=== PATIENT | female | born 1970 | race Caucasian/White ===

== ENCOUNTER 2019-01-20 17:03 | Emergency (ER) | payer MEDICARE, MEDICAID, SELFPAY ==
[2018-10-13 12:03] VITALS: BMI 24.4
[2019-01-20 17:03] VITALS: BP 108/82; PULSE 88; RESP 16; TEMP 36.6; O2SAT 100; BMI 24.8
--- NOTE | 2019-01-20 17:49 | ED.VISSUMM ---
- ER Visit Summary Date of Service: 01/20/19 Chief Complaint: Neck pain, back pain and buttock pain status post fall History of Present Illness: The patient is a 48 F who presents status post fall. She was at a drinking establishment this past Saturday. She walked outside to smoke. She fell. She landed on her buttocks. She localizes pain to the right buttocks area, left mid back and right side of the neck posteriorly. She denied head trauma. Denies loss conscious. She denies paresthesia, anesthesia motors. She denies shortness of breath or difficulty breathing. She denies nausea, vomiting diarrhea. No change in color urine. She is on no anticoagulant. Physical Examination: Vital signs noted. She appears uncomfortable. Head is atraumatic normocephalic. Pupils are equal round reactive. Extraocular muscles are intact. TMs are pearly white with landmarks noted. Nares patent with no drainage. Posterior pharynx without erythema or exudate. Uvula is midline. There is no dysphonia or dysphasia. Trachea is midline. There is no stridor with auscultation of the neck. There is pain to palpation right paracervical region. There is no midline tenderness. She has full active range of motion. She complains her neck is stiff. Trach is midline. Heart is regular without murmur, gallop or rub. There is a bruise left mid back. There is no crepitus obtains air. Breath sounds were noted bilaterally with no hyperresonance. Abdomen is soft nontender with no hepatosplenomegaly. There is no pain palpation left or right upper quadrant. There is pain abrasion over the right issue tuberosity. Gait was observed normal. She is alert oriented x3. Moves all extremities. Test Results: None were obtained Emergency Department Course and Treatment: Patient was offered pain medicine which she declined. She was informed based on history and physical imaging is not warranted. She questioned me 5 times regarding x-ray. When an x-ray of the chest was offered she declined. Treatment Plan: Rest, ice and anti-inflammatory Disposition: Discharge to home Impression: 1. Paracervical strain secondary to fall initial counter 2. Left mid back contusion secondary to fall initial encounter 3. Right buttocks contusion secondary to fall initial encounter This note was generated with moneymeetsation software. It may contain incorrect words, spelling, and punctuation that were not noted in review of the chart prior to signing ED Disposition - Plan for ED Patient: Disposition: Home or Assisted Living Instructions: ED Contusion Back, ED Sprain Strain Neck Referrals: Jose Guadalupe Liz MD [Primary Care Provider] - 10-14 Days if not better
== END 2019-01-20 18:00 | disposition home or self-care (01) ==
PROVIDERS: Emergency Provider Emergency Medicine; Family Provider Family Medicine; PCP Family Medicine
DX: S30.0XXA Contusion of lower back and pelvis, initial encounter (principal); S20.222A Contusion of left back wall of thorax, initial encounter; W01.0XXA Fall on same level from slipping, tripping and stumbling without subsequent striking against object, initial encounter; Y93.9 Activity, unspecified; Y92.838 Other recreation area as the place of occurrence of the external cause; Y99.9 Unspecified external cause status; Z72.0 Tobacco use
CPT/HCPCS: 99282

== ENCOUNTER → 2019-09-21 11:56 | Outpatient (CLI) | payer MEDICARE, MEDICAID, SELFPAY ==
[2019-08-28 14:41] VITALS: BMI 24.8
[2019-09-21 13:11] LABS: ALB/GLOB Ratio 1.1 RATIO (0.9-2.4); AST(SGOT) 17 U/L (15-37); Alanine Aminotransfer ALT/SGPT 20 U/L (13-56); Albumin, Serum 3.8 g/dL (3.2-5.0); Alkaline Phosphatase 59 U/L (45-117); Anion Gap 4 (5-15); BUN 13 mg/dL (7-18); BUN/Creat Ratio 14.8 RATIO (10-20); Calcium,Total 8.7 mg/dL (8.5-10.1); Chloride 108 mmol/L (98-107); Cholesterol 238 mg/dL (200); Creatinine, Serum 0.88 mg/dL (0.55-1.02); EST Glomerular Filtration Rate 73 mL/min (>60); Est Glom Filt Rate - Afr Amer 88 mL/min (>60); Globulin 3.6 g/dL (2.2-4.2); Glucose 85 mg/dL (74-106); High Density Lipoprotein 44 mg/dL; Potassium 4.4 mmol/L (3.5-5.1); Protein, Total 7.4 g/dL (6.4-8.2); Sodium Level 140 mmol/L (136-145); Triglycerides 116 mg/dL; Very Low Density Lipoprotein 23 mg/dL (5-40)
== END ==
PROVIDERS: Family Provider Family Medicine; PCP Family Medicine; Referring Provider Family Medicine; Visit Provider Family Medicine
DX: Z13.6 Encounter for screening for cardiovascular disorders (principal); Z13.1 Encounter for screening for diabetes mellitus
CPT/HCPCS: 36415; 80053; 80061

== ENCOUNTER → 2019-09-29 11:46 | Outpatient (CLI) | payer MEDICARE, MEDICAID, SELFPAY ==
[2019-08-28 14:41] VITALS: BMI 24.8
--- NOTE | 2019-09-29 11:51 | BI_ITS ---
MAMMOGRAPHY - BILATERAL SCREENING REASON FOR EXAM: Female, 49 years old. Routine annual screening examination. PERTINENT HISTORY: Non-contributory. TECHNIQUE: Digital bilateral breast tushar (3D mammographic acquisition) in the CC and MLO projections. 2-D mediolateral oblique (MLO) and craniocaudad (CC) views of both breasts were obtained. CAD: Full Field Digital Mammography with Computer Added Detection was performed. COMPARISON: Comparison is made with prior outside examination dated February 16, 2013. FINDINGS: Breast Composition: The breasts are heterogeneously dense, which may obscure small masses. There are no dominant masses or suspicious calcifications. Stable small left axillary lymph node. No other significant abnormalities are identified. There has been no significant change since the prior study. BI/SCREEN MAMM (CAD) W/TUSHAR BILAT IMPRESSION: Stable bilateral screening mammogram. Yearly follow-up mammogram recommended. (A) ASSESSMENT CATEGORY: BIRADS Category 2: Benign. A letter regarding these results will be sent to the patient by the facility within 30 days. Approximately 10% of breast cancers are not detected by mammography. A normal mammogram should not delay biopsy of a clinically suspicious abnormality. [id number] Electronically Signed: Tomas Pitts, at 14:20 EST , Service support ,
== END ==
PROVIDERS: Family Provider Family Medicine; PCP Family Medicine; Referring Provider Family Medicine; Visit Provider Family Medicine
DX: Z12.31 Encounter for screening mammogram for malignant neoplasm of breast (principal)
CPT/HCPCS: 77063; 77067

== ENCOUNTER 2020-06-22 17:14 | Emergency (ER) | payer MEDICARE, MEDICAID, SELFPAY ==
[2019-12-30 16:11] VITALS: BMI 24.8
[2020-06-22 17:16] VITALS: BP 136/79; PULSE 100; RESP 18; TEMP 36.4; O2SAT 96; BMI 23.3
--- NOTE | 2020-06-22 17:20 | ED.RN ---
PT VERY ANXIOUS DURING TRIAGE, ASKING QUESTIONS ABOUT COVID. REASSURED PT THAT ALL PRECAUTIONS ARE BEING TAKEN TO PREVENT SPREAD OF COVID. PT STATES SHE DOES NOT WANT TO BE SEEN.
--- NOTE | 2020-06-22 17:20 | ED.RN ---
PT LEFT WITHOUT BEING SEEN.
== END 2020-06-22 17:20 ==
LOC: ED 17:44
PROVIDERS: Emergency Provider Emergency Medicine; PCP Family Medicine
DX: J02.9 Acute pharyngitis, unspecified (principal)

== ENCOUNTER → 2023-05-09 | Outpatient (CLI) | payer MEDICARE, MEDICAID, SELFPAY ==
--- NOTE | 2023-05-09 08:43 | BI_ITS ---
MAMMOGRAPHY - BILATERAL SCREENING REASON FOR EXAM: Female, 53 years old. Routine annual screening examination. PERTINENT HISTORY: Non-contributory. TECHNIQUE: Digital bilateral breast tushar (3D mammographic acquisition) in the CC and MLO projections. 2-D mediolateral oblique (MLO) and craniocaudad (CC) views of both breasts were obtained. CAD: Full Field Digital Mammography with Computer Added Detection was performed. COMPARISON: Comparison is made with prior study dated September 29, 2019. FINDINGS: Breast Composition: The breasts are heterogeneously dense, which may obscure small masses. There are no dominant masses or suspicious calcifications. Stable small benign-appearing left axillary lymph node. No other significant abnormalities are identified. There has been no significant change since the prior study. BI/SCRN MAMM (CAD)W/TUSHAR BILAT IMPRESSION: Stable bilateral screening mammogram. Yearly follow-up mammogram recommended. (A) ASSESSMENT CATEGORY: BIRADS Category 2: Benign. A letter regarding these results will be sent to the patient by the facility within 30 days. Approximately 10% of breast cancers are not detected by mammography. A normal mammogram should not delay biopsy of a clinically suspicious abnormality. [id number] Electronically Signed: Tomas Pitts MD at 9:40 EDT ,
== END | disposition home or self-care (01) ==
LOC: OPBI 08:39
PROVIDERS: PCP Family Medicine; Referring Provider Family Medicine; Visit Provider Family Medicine
DX: Z12.31 Encounter for screening mammogram for malignant neoplasm of breast (principal)
CPT/HCPCS: 77063; 77067

== ENCOUNTER 2023-10-07 23:25 | Emergency (ER) | payer MEDICARE, MEDICAID, SELFPAY ==
[2023-10-07 23:26] VITALS: BP 131/83; PULSE 111; RESP 16; TEMP 36.1; O2SAT 100; BMI 24.5
--- NOTE | 2023-10-08 00:42 | EDS_ITS ---
HPI History of Present Illness Chief Complaint: Other, Pain/Inj Informant: patient Narrative Narrative: 53-year-old female presenting to the emergency room with acute rectal pain. Patient states that she was sitting at her friend's house several hours before arrival when she got an acute sharp pain in the rectal region. States she has had something like this before and she tried many different creams and eventually went away. She denies any blood in the stool. She had a normal bowel movement earlier in the day. [facility] Medical History Arthritis Asthma Chest pain Hay fever Hemorrhoids Neck pain Shoulder pain SOB (shortness of breath) Home Medications albuterol sulfate 90 mcg/actuation aerosol inhaler 8.5 unit inhalation PRN PRN Shortness Of Breath 07/05/14 [History Last Taken Unknown] budesonide-formoterol HFA 160 mcg-4.5 mcg/actuation aerosol inhaler 1 unit inha lation PRN PRN Shortness Of Breath 07/05/14 [History Last Taken Unknown] lorazepam 0.5 mg tablet 0.5 mg PO DAILY 07/05/14 [History Last Taken Unknown] omeprazole 20 mg capsule,delayed release 20 mg PO DAILY 07/05/14 [History Last Taken Unknown] benzonatate 100 mg capsule 200 mg (2 x 100 mg) PO TID PRN cough #30 caps 08/28/19 [Rx Last Taken Unknown] azithromycin 250 mg tablet See Rx Instructions PO .COMPLEX #6 tabs 10/17/21 [Rx Last Taken Unknown] hydrocortisone 2.5 % topical cream with perineal applicator (Anusol-HC) 1 applic MS TID PRN PRN pa #30 grams 10/08/23 [Rx Last Taken Unknown] Allergy/AdvReac Type Severity Reaction Status Date / Time latex Allergy Unknown Verified 10/07/23 23:26 sulfamethoxazole Allergy Angioedema Verified 10/07/23 23:26 [From Bactrim] trimethoprim [From Bactrim] Allergy Angioedema Verified 10/07/23 23:26 Surgical History Hernia History of removal of skin mole History of tonsillectomy Social History Smoking Status: Unknown if ever smoked alcohol intake: never ROS ROS ED Constitutional Constitutional ED: Denies chills or weight loss Eyes Eyes: Denies change in vision or diplopia ENT ENT ED: Denies ear pain, rhinorrhea or sore throat Cardiovascular Cardiovascular: Denies chest pain, orthopnea, palpitations or racing heartbeat Respiratory/Chest Respiratory/Chest: Denies cough, dyspnea or orthopnea Gastrointestinal Gastrointestinal: Reports other Details: Acute rectal pain ; Denies abdominal pain, constipation, diarrhea, melena, nausea or vomiting Genitourinary Genitourinary ED: Denies dysuria, hematuria or urinary frequency Musculoskeletal Musculoskeletal: Denies arthralgias or myalgias Integumentary Denies abscess or rash Neurologic Neurologic: Denies headache(s) or weakness Psychiatric Psychiatric: Denies anxiety, depression, suicidal ideation or suicidal thoughts Endocrine Endocrinology: Denies polydipsia, polyphagia or polyuria Allergic/Immunologic Allergic/Immunologic ED: Denies mouth swelling, tongue swelling or urticaria EXAM Physical Exam Const Vital Signs: 10/07/23 23:26 10/08/23 00:41 Temperature 96.9 F L Temperature Source Temporal Pulse Rate 111 H Respiratory Rate 16 Respiratory Effort Normal Non-Labored Respiratory Pattern Normal Blood Pressure 131/83 H Blood Pressure Mean 99 Pulse Ox 100 Oxygen Delivery Method Room Air Positive well nourished and well developed General Appearance ED: well developed HEENT Reports normocephalic, head/scalp atraumatic and moist mucous membranes Eyes PERRL and EOMs intact bilaterally Neck no lymphadenopathy, supple and no JVD Resp normal respiratory effort and clear to auscultation bilaterally Cardio regular rate, regular rhythm and no murmurs GI normal to inspection, nondistended, normoactive bowel sounds and non-tender Palpation: soft Narrative: Rectal examination was performed with female RN (Sally). Patient has a swollen nonthrombosed tender hemorrhoid located in the 3 o'clock position. No anal fissure seen. 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 If this continues to be a problem would recommend surgical evaluation. At this time it is not thrombosed. Discharge Plan Triage Chief Complaint: Other, Pain/Inj ED Provider: Reuben Dewitt Dx/Rx/DC Orders Clinical Impression: External hemorrhoid, Pain, rectal Instructions: ED Hemorrhoids Prescriptions: New hydrocortisone [Anusol-HC] 2.5 % cream with perineal applicator 1 applic MS TID PRN PRN (Reason: pa) Qty: 30 0RF No Action benzonatate 100 mg capsule 200 mg PO TID PRN (Reason: cough) Qty: 30 0RF azithromycin 250 mg tablet See Rx Instructions PO .COMPLEX Qty: 6 0RF Rx Instructions: take 500 mg today (day 1), then 250 mg for 4 days (days 2-5) PO lorazepam 0.5 MG tablet 0.5 mg PO DAILY Patient Comments: omeprazole 20 MG capsule,delayed release(DR/EC) 20 mg PO DAILY Patient Comments: albuterol sulfate 8.5 GM HFA aerosol inhaler 8.5 unit inhalation PRN PRN (Reason: Shortness Of Breath) Patient Comments: budesonide-formoterol 1 INHALER inhaler 1 unit inhalation PRN PRN (Reason: Shortness Of Breath) Patient Comments: Primary Care Provider: Kadie Castaneda Referrals: Kadie Castaneda, PARobbyC [Primary Care Provider] - 3-5 Days if not improving Disposition Disposition: Home, Self Care
== END 2023-10-08 00:44 | disposition home or self-care (01) ==
PROVIDERS: Emergency Provider Emergency Medicine; PCP Family Medicine; Visit Provider Emergency Medicine
DX: K64.4 Residual hemorrhoidal skin tags (principal); K62.89 Other specified diseases of anus and rectum
CPT/HCPCS: 99282

== ENCOUNTER → 2024-05-11 | Outpatient (CLI) | payer MEDICARE, MEDICAID, SELFPAY ==
--- NOTE | 2024-05-11 11:59 | BI_ITS ---
MAMMOGRAPHY - BILATERAL SCREENING REASON FOR EXAM: Female, 54 years old. Routine annual screening examination. PERTINENT HISTORY: Non-contributory. Prior left breast needle biopsy. TECHNIQUE: Digital bilateral breast tushar (3D mammographic acquisition) in the CC and MLO projections. 2-D mediolateral oblique (MLO) and craniocaudad (CC) views of both breasts were obtained. CAD: Full Field Digital Mammography with Computer Added Detection was performed. COMPARISON: Comparison is made with prior study dated 01/09/2023 and September 29, 2019. FINDINGS: Breast Composition: The breasts are heterogeneously dense, which may obscure small masses. There is a 8.3 mm x 7.2 mm well-defined nodule in the central slightly upper aspect of the left breast. Correlation with ultrasound is recommended. No other significant abnormalities are identified. BI/SCRN MAMM (CAD)W/TUSHAR BILAT IMPRESSION: 8.3 mm x 7.2 mm well-defined nodule in the central slightly upper aspect of the left breast. Correlation with ultrasound is recommended. ASSESSMENT CATEGORY: BIRADS Category 0: Incomplete. Need additional imaging evaluation. A letter regarding these results will be sent to the patient by the facility within 30 days. Approximately 10% of breast cancers are not detected by mammography. A normal mammogram should not delay biopsy of a clinically suspicious abnormality. [id number] Electronically Signed: Tomas Pitts MD at 13:11 EDT ,
== END | disposition home or self-care (01) ==
PROVIDERS: PCP Family Medicine; Referring Provider Family Medicine; Visit Provider Family Medicine
DX: Z12.31 Encounter for screening mammogram for malignant neoplasm of breast (principal)
CPT/HCPCS: 77063; 77067

== ENCOUNTER → 2024-05-13 | Outpatient (CLI) | payer MEDICARE, MEDICAID, SELFPAY ==
--- NOTE | 2024-05-13 08:33 | US_ITS ---
STUDY: ULTRASOUND BREAST - LEFT REASON FOR EXAM: Female, 54 years old. Abnormal screening mammogram. TECHNIQUE: Axial and longitudinal images of the LEFT breast were performed with a high resolution ultrasound transducer. # OF IMAGES: 10 COMPARISON: Comparison is made with prior mammogram dated May 11, 2024. FINDINGS: LEFT Breast: The upper inner quadrant of the left breast was examined with ultrasound. The mammographic abnormality corresponds to a 9 mm x 8 mm x 4 mm cyst at the 11:00 position of the breast at 3 cm from the nipple. US/Breast Limited Unilateral IMPRESSION: The mammographic abnormality corresponds to a 9 mm x 8 mm x 4 mm cyst at the 11:00 position breast at 3 cm from the nipple. ASSESSMENT CATEGORY: BIRADS Category 2: Benign. A letter regarding these results will be sent to the patient by the facility within 30 days. Electronically Signed: Tomas Pitts MD at 15:06 EDT ,
== END | disposition home or self-care (01) ==
LOC: OPUS 08:32
PROVIDERS: PCP Family Medicine; Visit Provider Family Medicine
DX: N63.20 Unspecified lump in the left breast, unspecified quadrant (principal); R92.8 Other abnormal and inconclusive findings on diagnostic imaging of breast
CPT/HCPCS: 76642

== ENCOUNTER 2025-02-18 20:31 | Emergency (ER) | payer MEDICARE, MEDICAID, SELFPAY ==
[2025-02-18 20:32] VITALS: BP 131/82; PULSE 102; RESP 22; TEMP 36.1; O2SAT 98; BMI 26.6
--- NOTE | 2025-02-18 20:33 | RAD_ITS ---
PROCEDURE: CHEST PA AND LATERAL 02/18/2025 REASON FOR EXAM: 54-year-old female, left-sided chest pain. TECHNIQUE: Single view chest with supine and upright views of the chest. COMPARISON: None. FINDINGS: Hardware: None. Heart: The heart size is normal. Lungs: No focal consolidation, pleural effusion or pneumothorax. Bones: The bones are unremarkable. RAD/Chest PA and Lateral IMPRESSION: NO ACUTE FINDINGS Reading Location: [id number]
--- NOTE | 2025-02-18 23:26 | EKG12_ITS ---
Test Reason : CHEST OTHER Blood Pressure : */* mmHG Vent. Rate : 90 BPM Atrial Rate : 90 BPM P-R Int : 166 ms QRS Dur : 80 ms QT Int : 386 ms P-R-T Axes : 53 78 60 degrees QTcB Int : 472 ms Normal sinus rhythm Normal ECG Confirmed by HARMONY ALBARADO, EVELINA ([id number]), video editor RADHA SABA ([id number]) on 02/19/2025 8:24:59 AM Referred By: [facility] Confirmed By: EVELINA ANTUNEZ MD
--- NOTE | 2025-02-18 23:51 | EDS_ITS ---
HPI History of Present Illness Chief Complaint: Chest Other Narrative Narrative: Patient is a 54-year-old female past medical history asthma who presents to the emergency department the chief complaint of left rib pain. Patient states that yesterday she was leaning against the dumpster attempting to get something out of it noting that she had pain afterwards. States that she did not hit her chest against the dumpster. Patient notes that she had been taking Tylenol for pain control at home not helping her symptoms therefore she came here for the valuation management. Patient has no other complaints at this point time. [facility] Medical History (Updated 02/19/25 @ 00:[address] Juan Parks, DO) Neck pain Asthma Chest pain Hay fever Shoulder pain Hemorrhoids SOB (shortness of breath) Arthritis Home Medications ?Medication ?Instructions ?Recorded ?Last Taken ?Type albuterol sulfate 90 mcg/actuation 8.5 unit inhalation PRN PRN 07/05/14 Unknown History aerosol inhaler Shortness Of Breath budesonide-formoterol HFA 160 1 unit inhalation PRN MD N 07/05/14 Unknown History mcg-4.5 mcg/actuation aerosol Shortness Of Breath inhaler lorazepam 0.5 mg tablet 0.5 mg PO DAILY 07/05/14 Unk nown History omeprazole 20 mg capsule,delayed 20 mg PO DAILY Unknown History release hydrocortisone 2.5 % topical cream 1 applic MD TID PRN PRN pa #30 10/08/23 Unknown Rx with perineal applicator grams (Anusol-HC) azithromycin 250 mg tablet See Rx Instructions PO .COM PLEX #6 07/07/24 Unknown R x tabs fluconazole 200 mg tablet 200 mg PO DAILY #1 TAB 07/07 Unknown Rx methylprednisolone 4 mg tablets in See Rx Instructions PO PER PKG DIR 07/07/24 Unknown Rx a dose pack (Medrol (Messi)) #21 tabs Allergy/AdvReac Type Severity Reaction Status Date / Time latex Allergy Unknown Verified 02/18/25 20:32 sulfamethoxazole (From Allergy Angioedema Verified 02/18/25 20:32 Bactrim) trimethoprim (From Bactrim) Allergy Angioedema Verified 02/18/25 20:32 Surgical History History of removal of skin mole History of tonsillectomy Hernia Social History Smoking Status: Current every day smoker tobacco type: cigarettes alcohol intake: never ROS ROS ED ROS Narrative Constitutional: Denies fevers, chills, headaches, lightness, dizziness Eyes: Denies change in visual vision blurry Cardiovascular: Denies chest pain or palpitations Respiratory: Denies coughing wheezing shortness of breath Abdomen: denies abdominal pain nausea vomiting diarrhea : Denies urinary symptoms Neurological: Denies numbness, weakness, tingling Musculoskeletal: Denies back pain complains of rib pain as noted above Skin: Denies rashes or lesions EXAM Physical Exam Narrative Exam Narrative: General: Patient was lying in bed rest comfortably did not appear to be in acute distress Head: Atraumatic, normocephalic Eyes: PERRL bilaterally, EOMI bilateral, no conjunctival injection noted Neck: Soft, supple, trachea midline Cardiovascular: Regular rate and rhythm no murmurs gallops rubs noted Respiratory: Clear to auscultation bilaterally no rales rhonchi or wheezes noted Abdomen: Soft, nondistended, tender to palpation Musculoskeletal: Patient has tenderness palpation over left rib cage noted Extremities: +5/5 strength noted to bilateral upper and lower EXTR, radial pulse +2/4 in the bilateral extremities, no pedal edema no exam Neurological: Patient following commands that she was at [facility] years 2024 Skin: Warm, dry, intact no rashes or lesions noted Const Vital Signs: 02/18/25 20:32 02/18/25 23:38 02/18/25 23:58 Temperature 97 F L Temperature Source Temporal Pulse Rate 102 H 76 Respiratory Rate 22 H 18 Blood Pressure 131/82 H 105/85 H Blood Pressure Mean 98 91 Pulse Ox 98 96 Oxygen Delivery Method Room Air Room Air Room Air MDM MDM MDM Narrative Medical decision making narrative: Patient is a 54-year-old female who presented to the emergency department the chief complaint of left rib pain. On the differential diagnose includes but not limited to rib fracture, ACS, pneumonia, pneumothorax. Once workup is obtained reviewed she will be reevaluated. I offered the patient pain medication she states that she would only want Tylenol I told her that I could give her Tylenol however she states that she does not want here as she is unsure if this is will be Tylenol I tried to reassure her that if we give her medication we will order Tylenol. Patient's x-ray of her chest reviewed by myself by radiology showed no acute cardiopulmonary processes. Patient's EKG was reviewed by myself for which showed sinus rhythm with a rate of 90 beats per minutes. Patient had her vital signs repeated and they normalized. She was ambulated here and her oxygen level remained normal no hypoxia. Discussed results with the patient she would like to go home at this point time. She is encouraged to follow with her primary care physician outpatient setting. She encouraged to take her Tylenol at home for pain as she does not want any other type of medication. She is agreeable plan concerns answered she is discharged home in stable condition. Patient states that she is not waiting on her discharge paperwork she states that she will just throw them away anyhow. Radiography Diagnostic Testing: Clinical Impression(s) from Imaging Studies Chest X-Ray 02/18/25 20:33 IMPRESSION: NO ACUTE FINDINGS Reading Location: [facility] Discharge Plan Triage Chief Complaint: Chest Other ED Provider: Juan Parks Dx/Rx/DC Orders Clinical Impression: Rib pain on left side Prescriptions: No Action azithromycin 250 mg tablet See Rx Instructions PO .COMPLEX Qty: 6 0RF Rx Instructions: For 250 mg dose pack: take 500 mg today (day 1), then 250 mg for 4 days (days 2-5) PO methylprednisolone [Medrol (Messi)] 4 mg tablets,dose pack See Rx Instructions PO PER PKG DIR Qty: 21 0RF Rx Instructions: PO PER PKG DIR fluconazole 200 mg tablet 200 mg PO DAILY Qty: 1 0RF Rx Instructions: as needed after completing azithromycin, as discussed in office lorazepam 0.5 MG tablet 0.5 mg PO DAILY Patient Comments: omeprazole 20 MG capsule,delayed release(DR/EC) 20 mg PO DAILY Patient Comments: albuterol sulfate 8.5 GM HFA aerosol inhaler 8.5 unit inhalation PRN PRN (Reason: Shortness Of Breath) Patient Comments: budesonide-formoterol 1 INHALER inhaler 1 unit inhalation PRN PRN (Reason: Shortness Of Breath) Patient Comments: hydrocortisone [Anusol-HC] 2.5 % cream with perineal applicator 1 applic MD TID PRN PRN (Reason: pa) Qty: 30 0RF Primary Care Provider: Kadie Castaneda Referrals: Kadie Castaneda, PA-C [Primary Care Provider] - Activity Restrictions/Additional Instructions: Follow-up with your doctor in outpatient setting. Return with worsening symptoms or concerns. Take Tylenol for pain as needed. Print Language: [place] Disposition Disposition: Home, Self Care
[2025-02-18 23:58] VITALS: BP 105/85; PULSE 76; RESP 18; O2SAT 96
[2025-02-19 00:03] VITALS: O2SAT 94
== END 2025-02-19 01:25 | disposition home or self-care (01) ==
PROVIDERS: Emergency Provider Emergency Medicine; PCP Family Medicine; Visit Provider Emergency Medicine
DX: R07.81 Pleurodynia (principal); F17.210 Nicotine dependence, cigarettes, uncomplicated; J45.909 Unspecified asthma, uncomplicated
CPT/HCPCS: 71046; 93005; 99282